=== PATIENT | female | born 1945 | race Two or more races ===

== ENCOUNTER 2022-08-19 10:52 | Outpatient (CLI) | payer MEDICARE ==
[2022-08-19] MEDS ORDERED: LIDOCAINE 2% 20 ML MDV ONE (11:31)
[2022-08-19] MEDS ORDERED: TRIAMCINOLONE ACETONIDE SUSP 40 MG/ML 1 ML IM ONE (12:00)
[2022-08-19] MEDS ORDERED: DEXAMETHASONE SOD PHOSPHATE 4 MG/ML VIAL IM ONE (12:00)
[2022-08-19] MEDS ORDERED: ETHYL CHLORIDE SPRAY 1 EA BOTTLE TP ONE (12:00)
== END 2022-08-19 23:59 | disposition home or self-care (01) ==
LOC: WOU 10:52
PROVIDERS: ATTEND Podiatrist Foot & Ankle Surgery
DX: M72.2 Plantar fascial fibromatosis (principal); M21.371 Foot drop, right foot; M79.671 Pain in right foot; E78.5 Hyperlipidemia, unspecified
CPT/HCPCS: 20550; J1100; J3490

== ENCOUNTER 2022-09-02 09:10 | Outpatient (CLI) | payer MEDICARE | END 2022-09-02 23:59 | disposition home or self-care (01) | LOC: WOU 09:10 | PROVIDERS: ATTEND Podiatrist Foot & Ankle Surgery | DX: M72.2 Plantar fascial fibromatosis (principal); M21.371 Foot drop, right foot; M79.671 Pain in right foot | CPT/HCPCS: G0463 ==

== ENCOUNTER 2025-05-09 17:06 | Emergency (ER) | payer MEDICARE, OTHER ==
[~2025-05-09] VITALS: Ht 154.9 cm; Wt 70.8 kg
[2025-05-09] MEDS ORDERED: LIDOCAINE HCL/MPF 1% 30 ML VIAL IJ ONE (18:09)
[2025-05-09 19:21] VITALS: BP 125/64; TEMP 98.5; O2SAT 97
== END 2025-05-09 19:21 | disposition home or self-care (01) ==
LOC: ER 17:20
DX: S91.311A Laceration without foreign body, right foot, initial encounter (principal); J45.909 Unspecified asthma, uncomplicated; W26.0XXA Contact with knife, initial encounter; Y93.89 Activity, other specified; Y92.89 Other specified places as the place of occurrence of the external cause; Y99.8 Other external cause status
CPT/HCPCS: 12002; 99282; A6403; J3490